=== PATIENT | female | born 1995 | race Caucasian/White ===

== ENCOUNTER 2021-07-29 15:45 | Inpatient (IN) | payer OTHER ==
[~2021-07-29] VITALS: Ht 177.8 cm; Wt 124.7 kg
[2021-07-29 16:46] LABS: HEMOGLOBIN 11.1 gm/dl (12.3-15.3); RED BLOOD COUNT 4.1 M/UL (4.00-5.10); WHITE BLOOD COUNT 11.1 K/UL (4.5-11.0)
[2021-07-29 17:02] LABS: BUN/CREATININE RATIO 13 (0-10)
[2021-07-29] MEDS ORDERED: LEVOTHYROXINE75 MC1 PO (17:56)
[2021-07-29] MEDS ORDERED: TRANDATE 100 M100 MG PO (17:56)
[2021-07-29] MEDS ORDERED: PRENATAL TABLE1 EAC1 PO (17:57)
[2021-07-29] MEDS ORDERED: ASPIRIN CHEWABL81 MG PO (17:57)
[2021-07-30] MEDS ORDERED: HYDROCODON-ACE1 EAC4 PO (08:30)
[2021-07-30] MEDS ORDERED: DOCUSATE SODIU100 MG PO (08:30)
[2021-07-30] MEDS ORDERED: IBUPROFEN600 MG PO (08:30)
[2021-07-31 03:41] LABS: HEMOGLOBIN 9.4 gm/dl (12.3-15.3)
--- NOTE | 2021-07-31 15:10 | NUR ---
PATIENT NOTED TO BE CRYING IN PAIN TO RIGHT SHOULDER. RN NOTIFIED DR. Derrell FISHMAN WHO ORDERED RN TO ADMINISTER HYDROCODONE EARLY, IBUPROFEN (TO BE SCHEDULED NOW), AND FLEXERIL (NEW ORDER) WELL TO INITIATE HEAT AND COLD THERAPY TOLERATED TO BETTER MANAGE PAIN.
[2021-08-01] MEDS ORDERED: SIMETHICONE80 MG PO (10:05)
== END 2021-08-01 13:22 | disposition home or self-care (01) | DRG 788 ==
LOC: GENOP 15:45 → OB 21:13
PROVIDERS: Obstetrics & Gynecology; ADMIT Obstetrics & Gynecology
PROC: 4A1HXCZ Monitoring of Products of Conception, Cardiac Rate, External Approach (ICD-10-PCS; 2021-07-29)
PROC: 10D00Z1 Extraction of Products of Conception, Low, Open Approach (ICD-10-PCS; principal; 2021-07-30 10:45)
DX: O13.4 Gestational [pregnancy-induced] hypertension without significant proteinuria, complicating childbirth (principal); O99.284 Endocrine, nutritional and metabolic diseases complicating childbirth; Z20.822 Contact with and (suspected) exposure to COVID-19; E03.9 Hypothyroidism, unspecified; Z3A.37 37 weeks gestation of pregnancy; Z37.0 Single live birth; O99.214 Obesity complicating childbirth; E66.9 Obesity, unspecified; O90.89 Other complications of the puerperium, not elsewhere classified; M25.511 Pain in right shoulder
CPT/HCPCS: 36415; 80053; 81001; 82570; 82800; 83615; 84156; 84550; 85014; 85018; 85025; 90715; 96372; C9113; J0690; J1170; J1650; J1885; J2274; J2370; J2405; J2590; J3010; J3430; J7120; U0002

== ENCOUNTER 2021-08-06 16:31 | Emergency (ER) | payer OTHER ==
[~2021-08-06 16:31] MED LIST: ASPIRIN CHEWABL81 MG PO; DOCUSATE SODIU100 MG PO; HYDROCODON-ACE1 EAC4 PO; IBUPROFEN600 MG PO; LEVOTHYROXINE75 MC1 PO; PRENATAL TABLE1 EAC1 PO; SIMETHICONE80 MG PO; TRANDATE 100 M100 MG PO
[2021-08-06 18:22] LABS: HEMOGLOBIN 9.8 gm/dl (12.3-15.3); RED BLOOD COUNT 3.71 M/UL (4.00-5.10); WHITE BLOOD COUNT 8.1 K/UL (4.5-11.0)
[2021-08-06 18:44] LABS: BUN/CREATININE RATIO 19 (0-10)
== END 2021-08-06 19:30 | disposition home or self-care (01) ==
LOC: ER1 16:31
PROVIDERS: Student in an Organized Health Care Education/Training Program
DX: O14.95 Unspecified pre-eclampsia, complicating the puerperium (principal)
CPT/HCPCS: 80053; 81001; 85025; 99283